=== PATIENT | male | born 1965 | race Caucasian/White ===

== ENCOUNTER → 2016-05-04 | Outpatient (CLI) | payer OTHER ==
--- NOTE | 2016-05-04 13:08 | DX ---
Chest, Two Views 1219 hours History: Persistent cough, right lower lobe pneumonia. J 20.8. Comparison: None. Findings: Cardiac silhouette is within normal range. Bilateral peribronchial thickening. No focal p neumonia, congestive heart failure, pleural effusion, or pneumothorax. Impression: 1. Bronchitis. 2. No definite pneumonia.
== END ==
LOC: FIMAGING 12:18
PROVIDERS: ATTEND Internal Medicine
DX: J40 Bronchitis, not specified as acute or chronic (principal)

== ENCOUNTER 2016-05-20 13:59 | Emergency (ER) | payer OTHER ==
[2016-05-20 14:09] VITALS: RESP 16
[2016-05-20] MEDS ORDERED: ONDANSETRON 4 MG/2 ML VIAL ONE (15:13)
[2016-05-20] MEDS ORDERED: ONDANSETRON 4 MG/2 ML VIAL IVP ONE (15:13)
[2016-05-20] MEDS ORDERED: KETOROLAC 30 MG/1 ML SDV IVP ONE (15:22)
--- NOTE | 2016-05-20 15:25 | EDPHY ---
HPI/HX/ROS/PE/MDM Narrative: Chief complaint: Right flank pain HPI: 50-year-old male with a history of diabetes and multiple kidney stones in the past presenting with 8/10 right flank pain which started today. Patient states he had some minimal left flank pain early this morning and did pass a stone. He then began having severe right flank pain about 2 an 8 out 10 which did not respond to his usual hydrocodone treatments. He states this feels just like his prior kidney stones in the past. Has a urologist at the [facility] who follows him. He has had both uric acid and calcium oxalate stones and is currently taking allopurinol including his diabetes medications. Denies any fevers or chills. Some nausea and vomiting. Pain right now is a 6/10. He does state the pain is progressing from his upper back to his lower back and now is presenting more in his right groin. He states he feels that the stone is moving similar to prior stones. ROS: 10 point Review of Systems is negative except as noted in the HPI. Physical exam: Gen: Awake, Alert, uncomfortable appearing HEENT: Nose: no rhinorrhea Eyes: PERRLA, EOMI Mouth: Moist mucosa Neck: Supple, no JVD Chest: nontender, lungs clear to auscultation Heart: S1, S2 normal, no murmur Abd: Soft, non-tender, no guarding Back: no CVA tenderness, no midline tenderness Ext: no edema, non-tender Skin: no rash Neuro: CN II-XII intact, Sensation grossly intact, Strength 5/5 in bilateral upper and lower extremities ED Course: Urinalysis positive for blood but no evidence of infection. 1600 patient is feeling improved. Pain is down to a 4/10. Has not had any further vomiting. I have discussed at length the indications for CT scanning at this point. This patient has longstanding history of renal calculi and has a urologist. He has had multiple CAT scans in the past. He does state that this feels similar to priors. This pain started today. He feels that is moving and he would prefer to wait to see if he actually passes the stone as opposed to getting a CT scan at this time. I think that this is not appropriate decision. Aim will be to get his pain under control and discharge with follow up with his urologist at the [place]. - Data Points Laboratory Results: 05/20/16 14:45 Urine Color RAISA Urine Appearance MODERATELY TURBID Urine pH 5.0 (5.0-7.5) Ur Specific Lyle 1.020 (1.002-1.030) Urine Protein 2+ H (NEGATIVE) Urine Ketones NEGATIVE (NEGATIVE) Urine Blood 3+ H (NEGATIVE) Urine Nitrate NEGATIVE (NEGATIVE) Urine Bilirubin NEGATIVE (NEGATIVE) Urine Urobilinogen NEGATIVE EU (0.2-1.0) Ur Leukocyte Esterase NEGATIVE (NEGATIVE) Urine RBC 50-182 H /hpf (0-3) Urine WBC 1-3 /hpf (0-3) Ur Epithelial Cells TRACE /lpf (NONE-1+) Urine Bacteria 2+ H /hpf (NONE SEEN) Urine Mucus 3+ H /lpf (NONE-1+) Urine Glucose NEGATIVE (NEGATIVE) Medications Given: Discontinued Medications Ketorolac Tromethamine (Toradol) 30 mg IVP EDNOW ONE Stop: 05/20/16 15:23 Last Admin: 05/20/16 15:31 Dose: 30 mg Ondansetron HCl (Zofran) 4 mg IVP EDNOW ONE Stop: 05/20/16 15:14 Last Admin: 05/20/16 15:18 Dose: 4 mg Oxycodone/Acetaminophen (Percocet 5/325mg Prepack#4) 1 btl TAKEHOME EDNOW ONE Stop: 05/20/16 16:17 Last Admin: 05/20/16 16:29 Dose: 1 btl General Time Seen by Provider: 05/20/16 15:01 Initial Vital Signs: Initial Vital Signs Temperature (C) 36.6 C 05/20/16 14:07 Heart Rate 90 05/20/16 14:07 Respiratory Rate 16 05/20/16 14:07 Blood Pressure 131/85 H 05/20/16 14:07 O2 Sat (%) 92 05/20/16 14:07 O2 Delivery Mode Room Air Allergies/Adverse Reactions: azithromycin Allergy (Verified 05/20/16 14:06) erythromycin base Allergy (Verified 05/20/16 14:06) Penicillins Allergy (Verified 05/20/16 14:06) Home Medications: Medication Instructions Recorded Aspirin 81mg (OTC) 03/20/15 Glipizide 03/20/15 Hydrochlorothiazide 03/20/15 Lisinopril 03/20/15 Metformin HCl 03/20/15 Simvastatin 03/20/15 Hydrocodone/Acetaminophen 1 - 2 each PO Q4-6PRN PRN #10 05/20/16 [Hydrocodon-Acetaminophen 5-325] tablet Departure - Departure Disposition: Home, Routine, Self-Care Clinical Impression: Renal colic on right side Condition: Good Instructions: Kidney Stones (ED) Additional Instructions: [facility]-3 days if symptoms are not improving. It is fine to take tamsulosin in addition to your pain medications to help facilitate the passage of the stone. Return to the emergency department for increasing pain that is not controlled with pain medications, uncontrolled nausea vomiting, fevers, chills, or any other concerns. Referrals: Shira Hendricks MD [Primary Care Provider] - As per Instructions Prescriptions: Hydrocodone/Acetaminophen [Hydrocodon-Acetaminophen 5-325] 1 - 2 each PO Q4- 6PRN PRN #10 tablet PRN Reason: Pain, Severe
[2016-05-20 15:35] LABS: COLOR AMBER; LEUKOCYTE ESTERASE,URINE NEGATIVE (NEGATIVE); NITRITE,URINE NEGATIVE (NEGATIVE)
[2016-05-20] MEDS ORDERED: OXYCODONE/APAP 5/325MG PREPACK#4 BTL TAKEHOME ONE (16:16)
[2016-05-20 16:28] LABS: BACTERIA 2+ /hpf (NONE SEEN); MUCUS 3+ /lpf (NONE-1+); RBC,URINE 50-182 /hpf (0-3)
[2016-05-20] MEDS ORDERED: HYDROCOD/APAP 5/325 PREPACK#6 BTL TAKEHOME ONE (16:48)
[2016-05-20 17:01] VITALS: BP 125/80; PULSE 81; TEMP 96.8; O2SAT 95
== END 2016-05-20 17:01 | disposition home or self-care (01) ==
DX: N23 Unspecified renal colic (principal); Z79.82 Long term (current) use of aspirin
CPT/HCPCS: 96374; J1885; J2405